=== PATIENT | male | born 1960 | race Caucasian/White ===

== ENCOUNTER 2018-03-03 18:05 | Emergency (ER) | payer MEDICAID ==
[~2018-03-03] VITALS: Ht 175.3 cm; Wt 68.2 kg
[~2018-03-03 18:05] MED LIST: FINA5TAB11; FLO0.4C PO; PENI500T2 PO; [UNRECOGNIZED DRUG - OTHER]
[2018-03-03 18:13] VITALS: BP 138/84
[2018-03-03] MEDS ORDERED: HYDROcodone/acetaminophen 5mg/325mg tablet PO ONE (19:00)
[2018-03-03] MEDS ORDERED: NAPR-56 PO (19:01)
== END 2018-03-03 19:13 | disposition home or self-care (01) ==
LOC: ER 18:05
DX: S80.12XA Contusion of left lower leg, initial encounter (principal); J44.9 Chronic obstructive pulmonary disease, unspecified; F12.90 Cannabis use, unspecified, uncomplicated; Z59.0 Homelessness; Z56.0 Unemployment, unspecified; Z79.2 Long term (current) use of antibiotics; Z79.899 Other long term (current) drug therapy; V29.9XXA Motorcycle rider (driver) (passenger) injured in unspecified traffic accident, initial encounter; Y93.89 Activity, other specified; Y92.89 Other specified places as the place of occurrence of the external cause; Y99.8 Other external cause status
CPT/HCPCS: 73590; 99284; A6449

== ENCOUNTER 2018-03-08 17:01 | Emergency (ER) | payer MEDICAID ==
[~2018-03-08] VITALS: Ht 177.8 cm; Wt 68.0 kg
[~2018-03-08 17:01] MED LIST changes: +NAPR-56 PO
[2018-03-08] MEDS ORDERED: HYDROcodone/acetaminophen 10/325mg tab PO ONE (17:30)
[2018-03-08 17:45] VITALS: BP 141/101
[2018-03-08] MEDS ORDERED: HYDR-565 PO (17:57)
[2018-03-08] MEDS ORDERED: IBUP-1984 PO (17:57)
== END 2018-03-08 18:08 | disposition home or self-care (01) ==
LOC: ER 17:01
DX: M54.5 Low back pain (principal); M53.3 Sacrococcygeal disorders, not elsewhere classified; J44.9 Chronic obstructive pulmonary disease, unspecified; F12.90 Cannabis use, unspecified, uncomplicated; Z79.899 Other long term (current) drug therapy; Z59.0 Homelessness; Z56.0 Unemployment, unspecified
CPT/HCPCS: 72170; 99283; 99284

== ENCOUNTER 2018-04-05 09:31 | Emergency (ER) | payer MEDICAID ==
[~2018-04-05] VITALS: Ht 177.8 cm; Wt 65.4 kg
[~2018-04-05 09:31] MED LIST changes: +BENZ-16 PO; +HYDR-565 PO; +IBUP-1984 PO; -NAPR-56 PO
[2018-04-05 09:35] VITALS: BP 132/82
[2018-04-05] MEDS ORDERED: CYCL-1 PO (10:35)
[2018-04-05] MEDS ORDERED: IBUP-1984 PO (10:35)
== END 2018-04-05 10:58 | disposition home or self-care (01) ==
LOC: ER 09:32
DX: M54.41 Lumbago with sciatica, right side (principal); J44.9 Chronic obstructive pulmonary disease, unspecified; M19.90 Unspecified osteoarthritis, unspecified site; F12.90 Cannabis use, unspecified, uncomplicated; Z56.0 Unemployment, unspecified; Z59.0 Homelessness; Z79.899 Other long term (current) drug therapy
CPT/HCPCS: 99284

== ENCOUNTER → 2018-04-18 | Emergency (ER) | payer MEDICAID ==
[~2018-04-18] VITALS: Ht 175.3 cm; Wt 68.2 kg
[~2018-04-18] MED LIST changes: +CYCL-1 PO; -HYDR-565 PO; +HYDROcodone/acetaminophen 5mg/325mg tablet PO ONE
[2018-04-18 14:21] VITALS: BP 138/78
== END | disposition home or self-care (01) ==
LOC: ER 11:32
DX: M25.551 Pain in right hip (principal); G89.29 Other chronic pain; M54.5 Low back pain; J44.9 Chronic obstructive pulmonary disease, unspecified; F12.90 Cannabis use, unspecified, uncomplicated; Z59.0 Homelessness; Z56.0 Unemployment, unspecified; Z79.899 Other long term (current) drug therapy; W19.XXXA Unspecified fall, initial encounter; Y93.E1 Activity, personal bathing and showering; Y92.89 Other specified places as the place of occurrence of the external cause; Y99.9 Unspecified external cause status
CPT/HCPCS: 72170; 73502; 99284